=== PATIENT | female | born 1950 | race Caucasian/White ===

== ENCOUNTER 2019-10-24 16:53 | Inpatient (IN) | payer MEDICARE, OTHER ==
[~2019-10-24] VITALS: Ht 142.2 cm; Wt 40.8 kg
--- NOTE | 2019-10-24 17:02 | NUR ---
Zulema menard in ED - 10/24/19 at [address] Sloan at the [facility] for MSE.
[2019-10-24] MEDS ORDERED: IV NORMAL SALINE 1000 ML BAG IV ONE (17:45)
[2019-10-24 18:02] LABS: BASOPHILS % (AUTO) 0.3 % (0.0-2.0); HEMATOCRIT 45.9 % (31.2-41.9); HEMOGLOBIN 15.3 g/dL (10.9-14.3); LYMPHOCYTES # (AUTO) 0.5 K/uL (20.0-40.0); LYMPHOCYTES % (AUTO) 3.5 % (20.5-51.5); MEAN CORPUSCULAR HEMOGLOBIN 29.6 uug (24.7-32.8); MEAN CORPUSCULAR HGB CONC 33 g/dL (32.3-35.6); MONOCYTES # (AUTO) 1.4 K/uL (2.0-10.0); NEUTROPHILS # (AUTO) 13.5 K/uL (1.8-8.9); NEUTROPHILS % (AUTO) 87.2 % (38.5-71.5); PLATELET COUNT (AUTO) 355 K/uL (179-408); RED BLOOD CELL COUNT(AUTO) 5.15 MIL/uL (3.63-4.92); WHITE BLOOD COUNT (AUTO) 15.5 K/uL (3.8-11.8)
[2019-10-24 18:12] LABS: CREATININE 3.6 mg/dL (0.6-1.3); POTASSIUM 3.7 mmol/L (3.5-5.1)
[2019-10-24 18:29] LABS: BILIRUBIN,DIRECT 0.1 mg/dL (0.0-0.2)
--- NOTE | 2019-10-24 19:02 | NUR ---
REPORT GIVEN TO [employer] C[employer] SPECIALISTBEHAVIORAL HEALTH AIDE.
[2019-10-24] MEDS ORDERED: ACETAMINOPHEN 325 MG TABLET PO PRN (19:15)
[2019-10-24] MEDS ORDERED: ONDANSETRON 4 MG/2 ML VIAL IV PRN (19:15)
[2019-10-24] MEDS ORDERED: ACETAMINOPHEN 650 MG SUPP.RECT RC PRN (19:15)
--- NOTE | 2019-10-24 19:34 | NUR ---
COVID SWAB COLLECTED AND SENT TO LAB.
[2019-10-24 21:00] LABS: *BILIRUBIN,URIN 1+ (NEGATIVE); *CLARITY,URINE SLIGHTLY CLOUDY (CLEAR); *COLOR,URINE YELLOW (YELLOW); *KETONES,URINE TRACE (NEGATIVE); *UROBILINOGEN,URINE 0.2 E.U./dl (NORMAL); LEUKOCYTE ESTERASE ,URINE 1+ (NEGATIVE); NITRITE, URINE NEGATIVE (NEGATIVE); UGLUCOSE NEGATIVE (NEGATIVE)
[2019-10-24 21:02] LABS: *BLOOD, URINE TRACE INTACT (NEGATIVE)
[2019-10-24 21:13] LABS: BACTERIA,URINE NONE SEEN /HPF (NONE SEEN); SQUAMOUS EPITHELIAL CELL,UR MODERATE /HPF (NONE SEEN)
--- NOTE | 2019-10-24 23:02 | NUR ---
Pt. admitted to [facility] , under care of Emanuel GONZALEZ PULLMAN CONDUCTOR Belongs List completed. REPORT TO OZZY KUNZ
[2019-10-24] MEDS ORDERED: VANCOMYCIN IV 750 MG in IV DEXTROSE 5% 250 ML IV ONE (23:15)
[2019-10-24] MEDS: IV NS 1000 ML 1,000 ML IV PRN (23:30)
[2019-10-24] MEDS ORDERED: VANCOMYCIN HCL 500 MG VIAL ONE (23:41)
[2019-10-24] MEDS ORDERED: CEFTRIAXONE 1 G VIAL ONE (23:41)
[2019-10-25] MEDS ORDERED: PIPERACILLIN SODIUM/TAZOBACTAM 3.375 G in IV DEXTROSE 5% 50 ML IV SCH ×2
[2019-10-25] MEDS: CEFTRIAXONE 1 G in IV DEXTROSE 5% 50 ML IV SCH ×2 (00:08→20:05)
[2019-10-25 00:25] VITALS: BP 110/59
--- NOTE | 2019-10-25 00:35 | NUR ---
Pt stated that she lives in a mobile home and her AC is not working at this time and she might have heat exhaustion because of that. Addendum: 10/25/19 at 0040 by FRANKO KELLER RN Amended: Links added.
--- NOTE | 2019-10-25 02:41 | NUR ---
done in ER
[2019-10-25 04:28] VITALS: BP 95/47
--- NOTE | 2019-10-25 05:55 | NUR ---
Admitted to room 304; AAOx4; received in no acute distress and afebrile; IVF started and tolerated Rocephine and vanco; assisted to bathroom; plan of care initiated; continue to monitor.
[2019-10-25 07:24] LABS: BASOPHILS % (AUTO) 0.4 % (0.0-2.0); EOSINOPHILS % (AUTO) 0.3 % (0.0-7.0); HEMATOCRIT 37.5 % (31.2-41.9); HEMOGLOBIN 12.7 g/dL (10.9-14.3); LYMPHOCYTES # (AUTO) 1.3 K/uL (20.0-40.0); LYMPHOCYTES % (AUTO) 11.6 % (20.5-51.5); MEAN CORPUSCULAR HEMOGLOBIN 30.2 uug (24.7-32.8); MEAN CORPUSCULAR HGB CONC 34 g/dL (32.3-35.6); MEAN CORPUSCULAR VOLUME 89.3 fL (75.5-95.3); MONOCYTES # (AUTO) 1.4 K/uL (2.0-10.0); MONOCYTES % (AUTO) 12.4 % (0.0-11.0); NEUTROPHILS # (AUTO) 8.3 K/uL (1.8-8.9); NEUTROPHILS % (AUTO) 75.3 % (38.5-71.5); PLATELET COUNT (AUTO) 265 K/uL (179-408)
[2019-10-25 07:46] LABS: CREATININE 1.3 mg/dL (0.6-1.3); POTASSIUM 3.2 mmol/L (3.5-5.1)
[2019-10-25 07:51] LABS: BILIRUBIN,TOTAL 1.2 mg/dL (0.2-1.0); MAGNESIUM 2.2 mg/dL (1.8-2.4); PHOSPHOROUS 3.3 mg/dL (2.5-4.9); TOTAL PROTEIN, SERUM 6.1 g/dL (6.4-8.2)
[2019-10-25 07:53] LABS: THYROID STIMULATING HORMONE 1.587 mIU/mL (0.358-3.740)
[2019-10-25] MEDS: ENOXAPARIN SODIUM 30 MG/0.3 ML DISP.SYRIN SUBCUT SCH (08:02)
[2019-10-25] MEDS: PANTOPRAZOLE SODIUM 40 MG VIAL IV SCH (08:05)
[2019-10-25] MEDS ORDERED: ENOXAPARIN SODIUM 40 MG/0.4 ML DISP.SYRIN SQ SCH (09:00)
[2019-10-25] MEDS: POTASSIUM CHLORIDE 50 ML IV SCH ×4 (10:15→13:28)
[2019-10-25 11:39] VITALS: BP 92/55
--- NOTE | 2019-10-25 13:13 | NUR ---
Building Tech Consultation: 11:35am: SW met with this patient today due to a request for a certified social workers in health care consultation. Patient was sitting up in her hospital bed, awake, alert, receptive to meeting with this SW. Patient is a 69 year old female. Patient is oriented x 4. Patient maintained eye contact with this SW throughout the interview, smiled appropriately, and was engaged in conversation. Patient reports that she lives in a mobile home in [place]. Patient reported that her air conditioning had broken, and given the extreme heat this week, the temperature inside her home was 104 F. However, patient states that her friend has already ordered a portable AC from [employer], which will be delivered by Tuesday. Patient reports being independent with her ADL's, and also drives. 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 Patient states that her income is sufficient for her to pay her rent and for food and basic needs. Patient reports that she was , however has been from her spouse for a while. Patient does not have any children, however has several close friends who help and support her when needed. Discharge plans were discussed, and patient stated that she plans on returning home after this hospitalization. SW assessed patient for the need of community resources, but patient stated that she did not feel she needed any resources at this time. Patient was cooperative, thought process was appropriate, speech was clear. At this time, no psychosocial concerns were identified, and therefore no SS interventions are needed at this time. However, SW will continue to be available, as needed.
[2019-10-25 15:36] VITALS: BP 90/56
[2019-10-25] MEDS: IV NS 1000 ML 1,000 ML IV PRN (17:11)
--- NOTE | 2019-10-25 19:30 | NUR ---
RECEIVED PT AWAKE, ALERT AND ORIENTEDX4. PT IN NO ACUTE DISTRESS. IV INTACT. SAFETY AND COMFORT PROVIDED. WILL CONTINUE TO MONITOR.
[2019-10-25 20:00] VITALS: BP 104/59
[2019-10-25 20:03] VITALS: BP 104/59
[2019-10-26] MEDS: IV NS 1000 ML 1,000 ML IV PRN (03:53)
[2019-10-26 04:00] VITALS: BP 134/63
--- NOTE | 2019-10-26 06:30 | NUR ---
PT SLEPT COMFORTABLY. PT IN NO ACUTE DISTRESS. IV INTACT. PRESCRIBED MEDICATION GIVEN AND PT TOLERATED IT WELL.. PT COOPERATIVE WITH CARE. NO PRN MEDICATION GIVEN. SAFETY AND COMFORT PROVIDED. WILL ENDORSE TO INCOMING NURSE FOR CONTINUITY OF CARE.
[2019-10-26 06:41] LABS: BASOPHILS % (AUTO) 0.5 % (0.0-2.0); EOSINOPHILS # (AUTO) 0.1 K/uL (0.0-0.7); EOSINOPHILS % (AUTO) 0.8 % (0.0-7.0); HEMATOCRIT 34.4 % (31.2-41.9); HEMOGLOBIN 11.5 g/dL (10.9-14.3); LYMPHOCYTES # (AUTO) 1.5 K/uL (20.0-40.0); LYMPHOCYTES % (AUTO) 23.8 % (20.5-51.5); MEAN CORPUSCULAR HEMOGLOBIN 30.4 uug (24.7-32.8); MEAN CORPUSCULAR HGB CONC 33 g/dL (32.3-35.6); MONOCYTES # (AUTO) 0.8 K/uL (2.0-10.0); MONOCYTES % (AUTO) 12.4 % (0.0-11.0); NEUTROPHILS # (AUTO) 3.9 K/uL (1.8-8.9); NEUTROPHILS % (AUTO) 62.5 % (38.5-71.5); PLATELET COUNT (AUTO) 221 K/uL (179-408); RED BLOOD CELL COUNT(AUTO) 3.78 MIL/uL (3.63-4.92); WHITE BLOOD COUNT (AUTO) 6.2 K/uL (3.8-11.8)
[2019-10-26 07:12] LABS: CREATININE 0.7 mg/dL (0.6-1.3); MAGNESIUM 1.9 mg/dL (1.8-2.4); PHOSPHOROUS 1.7 mg/dL (2.5-4.9); POTASSIUM 4.3 mmol/L (3.5-5.1)
--- NOTE | 2019-10-26 07:30 | NUR ---
Received pt in bed awake AOx4, on RA with no SOB or distress noted at this time. Pt stated she's feeling a lot better and denied any pain. IV on right AC 20g running NS @ 100cc. Bandage on lower mid abdomen, pt stated to prevent her hernia from rubbing her clothes, denied any pain. Ambulated to bathroom. Bed locked in lowest position with siderails 2x up. Call light and phone within reach
[2019-10-26 08:00] VITALS: BP 109/61
[2019-10-26] MEDS: PANTOPRAZOLE SODIUM 40 MG VIAL IV SCH (08:48)
[2019-10-26] MEDS: ENOXAPARIN SODIUM 30 MG/0.3 ML DISP.SYRIN SUBCUT SCH (08:49)
[2019-10-26 11:32] VITALS: BP 97/61
[2019-10-26] MEDS: POTASSIUM PHOSPHATE MM 7.5 MMOL in IV DEXTROSE 5% 100 ML IV SCH ×2 (11:59→15:04)
[2019-10-26] MEDS ORDERED: POTASSIUM PHOSPHATE MM 15 MMOL in IV NORMAL SALINE 250 ML IV ONE (12:00)
[2019-10-26 15:02] VITALS: BP 102/62
[2019-10-26] MEDS ORDERED: ACET325T53 PO (15:20)
[2019-10-26] MEDS ORDERED: PANT40TA2 PO (15:20)
[2019-10-26] MEDS ORDERED: SULF1TAB47 PO (15:20)
[2019-10-26] MEDS ORDERED: ACET650S24 RC (15:20)
[2019-10-26] MEDS ORDERED: ENOX30DI SUBCUT (15:20)
--- NOTE | 2019-10-26 15:30 | NUR ---
Pt stated that she will be staying at her friend/ boss' house since her AC has not arrived yet
--- NOTE | 2019-10-26 18:20 | NUR ---
dc orders received noted and carried out,dc instruction and education given to the pt,shay sutton per md orders,pt said she will follow up with her pcp in one week.pt left the facility via private car in stable condition
[2019-10-27] MEDS ORDERED: PANTOPRAZOLE SODIUM 40 MG TABLET.DR PO SCH (07:00)
[2019-10-27] MEDS ORDERED: VANCOMYCIN IV 500 MG in IV DEXTROSE 5% 100 ML IV SCH (23:00)
== END 2019-10-26 17:40 | disposition home or self-care (01) | DRG 871 ==
LOC: ER 16:57 → MEDSURG3 22:40
PROVIDERS: ADMIT Registered Nurse; ATTEND Registered Nurse
DX: A41.9 Sepsis, unspecified organism (principal); K85.90 Acute pancreatitis without necrosis or infection, unspecified; N17.0 Acute kidney failure with tubular necrosis; T67.01XA Heatstroke and sunstroke, initial encounter; N39.0 Urinary tract infection, site not specified; R65.20 Severe sepsis without septic shock; E86.0 Dehydration; E11.9 Type 2 diabetes mellitus without complications; Z73.6 Limitation of activities due to disability; R53.1 Weakness; X58.XXXA Exposure to other specified factors, initial encounter; Y93.9 Activity, unspecified; Y92.89 Other specified places as the place of occurrence of the external cause; B95.61 Methicillin susceptible Staphylococcus aureus infection as the cause of diseases classified elsewhere
CPT/HCPCS: 36415; 70030-TC; 71045; 83605; 83690; 83735; 84100; 84443; 85025; 85730; 87040; 87077; 87086; 93005; A4663; C9113; G0378; J0696; J1650; J3370; J3480; J3490; J7030; J7060